=== PATIENT | male | born 1955 | race Caucasian/White ===

== ENCOUNTER 2018-06-14 20:00 | Inpatient (IN) | payer BC, SELFPAY ==
[2018-06-14 20:01] VITALS: BP 155/94; PULSE 71; RESP 18; TEMP 37.2; O2SAT 98; BMI 25.5
--- NOTE | 2018-06-14 20:23 | ED.DCSUM_ITS ---
- ER Visit Summary Date of Service: 06/14/18 Chief Complaint: abdominal pain History of Present Illness: The patient is a 63 M who presents for 3 days of abdominal pain. Pain is diffuse and achy. It is currently an 8 out of 10. Patient has associated nausea and vomiting. No diarrhea but patient is passing flatus. He has subjective fever secondary to sweats. No measured fever. No urinary symptoms. Pain started 3 days ago and improved after 24 hours. Patient then was very fatigued and slept from Thursday night until this morning. He has had decreased p.o. intake. He denies any medical history other than cholecystectomy. No tobacco or alcohol use. Physical Examination: Vital signs: afebrile, hemodynamically stable, no hypoxia on room air General: well nourished, well developed, in no distress Skin: warm, moist, no rash, no pallor HEENT: normocephalic and atraumatic; PERRL, EOMI, moist mucous membranes Cardiovascular: regular rate and rhythm without murmurs, no peripheral edema, 2 + pulses all distal extremities Respiratory: No increased work of breathing, lungs are clear to auscultation bilaterally, no rales, rhonchi or wheezing Abdominal: Abdomen is soft, diffusely tender with normoactive bowel sounds, no guarding or rebound, no masses MSK: Moves all extremities, no deformities, normal strength Neuro: Awake and alert, oriented ?4. No facial droop, sensation and motor function intact and symmetric Test Results: Abnormal Lab Results 06/14/18 06/14/18 06/14/18 20:46 20:46 20:46 WBC 13.1 H RBC 4.00 L Hgb 13.0 Hct 38.7 L MCV 96.8 H MCH 32.5 H MCHC 33.6 RDW 13.5 RDW Differential 47.5 H Plt Count 285 MPV 9.6 Immature Gran % (Auto) 0.100 Neut % (Auto) 77.2 H Lymph % (Auto) 11.3 L [place] % (Auto) 11.1 H Eos % (Auto) 0.2 Baso % (Auto) 0.1 Absolute Neuts (auto) 10.1 H Absolute Lymphs (auto) 1.48 Total Counted Not Reportable Sodium 138 Potassium 3.7 Chloride 102 Carbon Dioxide 25.0 Anion Gap 11 BUN 21 H Creatinine 1.20 Estim Creat Clear Calc 63.83 Est GFR (MDRD) Af Amer 79 Est GFR (MDRD) Non-Af 65 BUN/Creatinine Ratio 17.5 Glucose 123 H Lactic Acid 2.7 H Calcium 9.6 Total Bilirubin 1.60 H AST 39 H ALT 37 Alkaline Phosphatase 65 Troponin I < 0.015 Total Protein 8.2 Albumin 4.3 Globulin 3.9 Albumin/Globulin Ratio 1.1 Lipase 91 Urine Color Urine Clarity Urine pH Ur Specific [place] Urine Protein Urine Glucose (UA) Urine Ketones Urine Occult Blood Urine Nitrite Urine Bilirubin Urine Urobilinogen Ur Leukocyte Esterase Urine RBC Urine WBC Ur Squamous Epith Cells Urine Bacteria Urine Mucus 06/14/18 23:37 WBC RBC Hgb Hct MCV MCH MCHC RDW RDW Differential Plt Count MPV Immature Gran % (Auto) Neut % (Auto) Lymph % (Auto) [place] % (Auto) Eos % (Auto) Baso % (Auto) Absolute Neuts (auto) Absolute Lymphs (auto) Total Counted Sodium Potassium Chloride Carbon Dioxide Anion Gap BUN Creatinine Estim Creat Clear Calc Est GFR (MDRD) Af Amer Est GFR (MDRD) Non-Af BUN/Creatinine Ratio Glucose Lactic Acid Calcium Total Bilirubin AST ALT Alkaline Phosphatase Troponin I Total Protein Albumin Globulin Albumin/Globulin Ratio Lipase Urine Color Yellow Urine Clarity Clear Urine pH 7.0 Ur Specific [place] 1.010 Urine Protein 30 H Urine Glucose (UA) Normal Urine Ketones 15 H Urine Occult Blood 50 H Urine Nitrite Negative Urine Bilirubin Negative Urine Urobilinogen 4 H Ur Leukocyte Esterase 25 H Urine RBC 0 SEEN Urine WBC 0 SEEN Ur Squamous Epith Cells 0-5 SEEN Urine Bacteria 0 SEEN Urine Mucus 0 SEEN Clinical Impression(s) from Imaging Studies Abdomen/Pelvis CT 06/14/18 20:22 IMPRESSION: 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 Moderate hiatal hernia. Electronically Signed: Hector Delarosa MD at 22:09 EDT , Service support , Medications Given Discontinued Medications Hydromorphone HCl (Dilaudid Inj) 0.5 mg IV X1 ONE Stop: 06/14/18 22:31 Last Admin: 06/14/18 22:28 Dose: 0.5 mg Sodium Chloride () 1,000 mls @ 1,000 mls/hr IV .Q1H ONE Stop: 06/14/18 21:21 Last Admin: 06/14/18 20:52 Dose: 1,000 mls/hr Morphine Sulfate () 4 mg IV X1 ONE Stop: 06/14/18 20:23 Last Admin: 06/14/18 20:52 Dose: 4 mg Ondansetron HCl (Zofran) 4 mg IV X1 ONE Stop: 06/14/18 20:23 Last Admin: 06/14/18 20:52 Dose: 4 mg Ondansetron HCl (Zofran) 4 mg IV X1 ONE Stop: 06/14/18 21:51 Last Admin: 06/14/18 21:40 Dose: 4 mg Emergency Department Course and Treatment: Given the diffuse nature of patient' s pain and his age, EKG was performed showing a sinus rhythm without ischemia or ectopy. Troponin negative. CBC showed mild leukocytosis and no anemia. Leukocytosis may be secondary to the demarginalization from vomiting. BMP was unremarkable. Bilirubin mildly elevated at 1.6. No significant transaminitis. Lipase normal at 91. Lactate elevated at 2.7. Analysis negative for infection. Patient received IV hydration, morphine and Zofran for symptomatic relief. He was improved for a period of time but then began having nausea again and was given Phenergan for additional antiemetic and Dilaudid for additional pain. CT the abdomen and pelvis performed and showed no acute process to explain patient' s symptoms. Patient was reevaluated after receiving the 2 doses of pain and antiemetic medications as well as IV fluids. His symptoms were improved but he still did not feel well. He is afebrile, with no tachycardia or tachypnea, no hypoxia, and a mild leukocytosis that may be secondary to vomiting. He does have the elevated lactate, however he does not meet SIRS criteria and given that the patient has had very poor oral intake and has been vomiting several times, the elevated lactate may be secondary to an alternative process other than infection and more so due to dehydration. Because patient lives alone, is older, and has not had sufficient improvement after 2 doses of IV medications, patient will be admitted for intractable nausea and abdominal pain with concern for dehydration. Treatment Plan: [] Disposition: [] Impression: Vomiting illness, abdominal pain, dehydration This note was generated with [employer] software. It may contain incorrect words, spelling, and punctuation that were not noted in review of the chart prior to signing ED Disposition - Plan for ED Patient: Chief Complaint: Nausea/Vomiting Referrals: Chidi Jeff MD [Primary Care Provider] -
[2018-06-14] MEDS: 0.9% Normal Saline 1,000 ML 1000 ML IV (20:52)
[2018-06-14] MEDS: Ondansetron 4 MG/2 ML Vial IV ×2 (20:52→21:40)
[2018-06-14] MEDS: Morphine 4 MG/ML Syringe IV (20:52)
[2018-06-14 21:22] LABS: ALB/GLOB Ratio 1.1 RATIO (0.9-2.4); AST(SGOT) 39 U/L (15-37); Alanine Aminotransfer ALT/SGPT 37 U/L (16-61); Albumin, Serum 4.3 g/dL (3.2-5.0); Alkaline Phosphatase 65 U/L (45-117); Anion Gap 11 (5-15); BUN 21 mg/dL (7-18); BUN/Creat Ratio 17.5 RATIO (10-20); Calcium,Total 9.6 mg/dL (8.5-10.1); Chloride 102 mmol/L (98-107); EST Glomerular Filtration Rate 65 mL/min (>60); Est Glom Filt Rate - Afr Amer 79 mL/min (>60); Estimated Creatinine Clearance 63.83 ml/min; Globulin 3.9 g/dL (2.2-4.2); Glucose 123 mg/dL (74-106); Lipase 91 U/L (73-393); Potassium 3.7 mmol/L (3.5-5.1); Protein, Total 8.2 g/dL (6.4-8.2); Sodium Level 138 mmol/L (136-145)
[2018-06-14 21:41] LABS: Lactic Acid 2.7 mmol/L (0.4-2.0)
[2018-06-14] MEDS: HYDROmorphone 1 MG/ML Syringe 0.5 MG IV (22:28)
[2018-06-14 22:29] VITALS: BP 144/80; PULSE 79; RESP 17; O2SAT 97
--- NOTE | 2018-06-14 22:36 | ED.RN ---
LAB CALLED CRITICAL LAB ON THIS PATIENT OF LACTIC OF 2.7. DR BRANHAM NOTIFIED
[2018-06-14 23:46] LABS: Bacteria 0 SEEN /hpf (None Seen); Mucous, Urine 0 SEEN /hpf (<or=2+); Red Blood Cells-Urine 0 SEEN /hpf (0-5); White Blood Cells 0 SEEN /hpf (0-5)
[2018-06-14 23:47] LABS: Color, Urine Yellow (Yellow); Glucose, Dipstick Normal (Normal); Ketone-Dipstick 15 mg/dl (Negative); Leukocyte Esterase-Dipstick 25 /ul (Negative); Nitrite-Dipstick Negative (Negative); Occult Blood-Urine 50 /ul (Negative); Protein-Dipstick 30 mg/dl (Negative); Urine Bilirubin Dipstick Negative (Negative); Urine Clarity Clear (Clear); Urine Urobilinogen 4 mg/dl (Normal)
[2018-06-14 23:52] LABS: Absolute Lymphocyte Count 1.48 X10^3/ul (0.83-4.51); Absolute Neutrophil Count 10.1 X10^3/uL (2.0-7.7); Basophil# 0.01 X10^3/uL; Basophil% 0.1 % (0-1); Eosinophil# 0.02 X10^3/uL; Eosinophils% 0.2 % (0-5); Hematocrit 38.7 % (40-54); Lymphocyte # 1.48 X10^3/ul (4.0); Lymphocyte % 11.3 % (19-41); Mean Corp Hgb Conc 33.6 g/gl (32-36); Mean Corpuscular Hgb 32.5 pg (27.0-32.0); Mean Corpuscular Volume 96.8 fL (80-94); Mean Platelet Vol. 9.6 fl (6.2-12.0); Monocyte# 1.46 X10^3/uL; Monocyte% 11.1 % (0-10); Neutrophil # 10.12 X10^3/uL (2.7-7.7); Neutrophil % 77.2 % (47-70); Platelet Count 285 K/mm3 (150-450); RBC Distribution Width CV 13.5 % (11.6-14.6); RBC Distribution Width SD 47.5 fl (35.1-43.9); White Blood Count 13.1 K/mm3 (4.4-11.0)
[2018-06-14 23:59] LABS: POSITIVE COUNT NO; POSITIVE DIFFERENTIAL NO; POSITIVE MORPHOLOGY NO
[2018-06-15] VITALS (8 sets, daily range): BP systolic 146–159; BP diastolic 86–96; PULSE 56–76; RESP 14–18; TEMP 36.4–37.1; O2SAT 96–100; BMI 25.5; BMI 25.6
[2018-06-15] MEDS: 0.9% Normal Saline 1,000 ML 999 ML IV
[2018-06-15 00:07] LABS: Squamous Epithelial Cells - UA 0-5 SEEN /hpf (0-5)
--- NOTE | 2018-06-15 00:32 | PCM.HP.STD ---
Problem List (1) Gastritis Status: Acute (2) Elevated lactic acid level Status: Acute History of Present Illness Date of Admission: 06/15/18 Chief Complaint: Abdominal Pain, nausea and vomiting ?3 days. The patient is a 63 year old previously healthy male with a history of cholecystectomy who presents with 5 day history of abdominal pain, nausea and vomiting. He describes abdominal pain as dull and of severity 9 out of 10. His vomitus is green to yellow with one-time episode of blood. Patient presented to the emergency department because of persistence of his symptoms. Past Medical History Past Medical History (Chronic Problems): Chronic Problems Inguinal hernia (Chronic) Hiatal hernia (Chronic) Allergies No Known Allergies Allergy (Verified 11/20/15 15:24) Home Medications: Ambulatory Orders Medication Instructions Recorded NK [NK] 06/15/18 Surgical History: - - EGD in the past History of cholecystectomy Psychiatric History: No pertinent psych hx Lives: Alone, - Smoking Status: Former smoker - *Family History Paternal History Items: - - lymphoma Maternal History Items: - - AIDP Review of Systems Constitutional: Reports: Malaise Eyes: Denies: Blurred vision, Pain HEENT: Denies: Head Aches, Sinus Congestion, Sinus Drainage Cardiovascular: Denies: Chest Pain, Palpitations Respiratory: Denies: Cough, Shortness of breath at rest, Sputum production Gastrointestinal: Reports: Abdominal Pain. Denies: Diarrhea - He has been passing flatus. Genitourinary: Denies: Dysuria Musculoskeletal: Reports: Arm Pain Skin: Denies: Rash, Wounds Neurological: Denies: Numbness, Tingling, Focal weakness Psychiatric: Denies: Anxiety, Depression, Homicidal Ideations, Suicidal Ideations Hematologic/ Lymphatic: Denies: Easy Bruising, Easy Bleeding VTE Information - Inpt Only VTE Present on Admission: No VTE Mechan Device Prophylaxis: None VTE Pharm Prophylaxis ordered?: No Patient Problems: Active and Suspected Problems Gastritis (Acute) Elevated lactic acid level (Acute) - Physical Exam General: Alert, Oriented x3, Cooperative HEENT: Atraumatic, PERRLA, EOMI, Normocephalic Neck: Supple, No JVD, Negative Carotid Bruits Lungs: Clear to auscultation, Normal air movement Cardiovascular: Regular rate, No murmurs Abdomen: Bowel Sounds Present, Soft, Non Tender Extremities: No edema, Capillary Refill Less than 3 Seconds Skin: No rashes, No breakdown Musculoskeletal: No Tenderness to Palpation of Joints or Extremities Neurological: Cranial nerves II-XII grossly intact Psych/Mental Status: Normal Affect, Appropriate Vital Signs Temp Pulse Resp BP Pulse Ox 98.9 F 79 17 144/80 H 97 06/14/18 20:01 06/14/18 22:29 06/14/18 22:29 06/14/18 22:29 06/14/18 22:29 Assessment/Plan All Active Problems Gastritis (Acute) Elevated lactic acid level (Acute) Abdominal pain (Acute) The patient is a 63 year old previously healthy male with a history of cholecystectomy who presents with 5 day history of abdominal pain, nausea and vomiting. He describes abdominal pain as dull and of severity 9 out of 10 Likely viral gastritis WBC showed a neutrophilic leukocytosis and; low lymphocytes Received normal saline bolus at emergency department Continue maintenance normal saline IV fluid infusion. Supportive treatment with morphine as needed for pain; Zofran for nausea and vomiting. N.p.o. for now. Labs from emergency department was reviewed. CBC and BMP in a.m. Patient reports that his presenting symptoms okay about every 2 years. His symptoms symptoms could also be due to his left inguinal hernia and follow-up evaluation with general surgery is recommended after this acute symptoms resolves. For the CT scan of his abdomen showed dilated intra-and extrahepatic ducts. Patient had a cholecystectomy. But his symptoms could also be due to choledocholithiasis. Ultrasound of liver to further evaluate biliary tree ordered. Lipase is unremarkable. Urinalysis showed increase leukocyte esterase with no bacteria. Patient denies urinary symptoms. Elevated lactic acid Likely due to dehydration IV hydration as above. Repeat lactic acid per protocol. Hyperbilirubinemia Ultrasound of liver ordered. 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 Outpatient follow up Moderate hiatal hernia. Outpatient follow up. DVT prophylaxis with subcutaneous heparin. Code Visit Inpatient E&M: 35601 Init Hosp L3
--- NOTE | 2018-06-15 00:40 | ED.RN ---
rt ac iv discontinued. iv patent upon removal.
[2018-06-15 00:51] LABS: Reflex Lactate? Y
[2018-06-15] MEDS: 0.9% Normal Saline 1,000 ML 100 ML IV (01:45)
[2018-06-15 02:12] LABS: Lactic Acid 1.6 mmol/L (0.4-2.0)
[2018-06-15] MEDS: Morphine 2 MG/ML Syringe IV ×4 (04:44→19:55)
[2018-06-15] MEDS: 0.9% NaCl Peripheral Flush Adult/Peds IV ×4 (04:44→19:56)
[2018-06-15] MEDS: Ondansetron 4 MG/2 ML Vial IV ×3 (04:44→17:27)
[2018-06-15] MEDS: Heparin Injection (Vial) 5,000 UNIT/ML VIAL 5000 UNIT SC ×3 (05:49→23:43)
[2018-06-15 06:52] LABS: Absolute Lymphocyte Count 1.73 X10^3/ul (0.83-4.51); Eosinophil# 0.03 X10^3/uL; Eosinophils% 0.2 % (0-5); Hemoglobin 14.6 g/dl (13.0-16.5); Lymphocyte # 1.73 X10^3/ul (4.0); Lymphocyte % 12.3 % (19-41); Mean Corpuscular Hgb 32.7 pg (27.0-32.0); Mean Corpuscular Volume 96.4 fL (80-94); Mean Platelet Vol. 9.5 fl (6.2-12.0); Monocyte# 1.33 X10^3/uL; Monocyte% 9.4 % (0-10); Neutrophil # 10.97 X10^3/uL (2.7-7.7); Platelet Count 271 K/mm3 (150-450); RBC Distribution Width CV 13.6 % (11.6-14.6); RBC Distribution Width SD 47.6 fl (35.1-43.9); Red Blood Count 4.46 M/mm3 (4.6-6.2); White Blood Count 14.1 K/mm3 (4.4-11.0)
[2018-06-15 07:02] LABS: POSITIVE COUNT NO; POSITIVE DIFFERENTIAL NO; POSITIVE MORPHOLOGY NO
[2018-06-15 07:15] LABS: Anion Gap 13 (5-15); BUN 20 mg/dL (7-18); BUN/Creat Ratio 20.7 RATIO (10-20); Calcium,Total 8.5 mg/dL (8.5-10.1); Chloride 107 mmol/L (98-107); Creatinine, Serum 0.96 mg/dL (0.70-1.30); EST Glomerular Filtration Rate 84 mL/min (>60); Est Glom Filt Rate - Afr Amer 101 mL/min (>60); Estimated Creatinine Clearance 79.78 ml/min; Glucose 124 mg/dL (74-106); Potassium 3.8 mmol/L (3.5-5.1); Sodium Level 142 mmol/L (136-145)
--- NOTE | 2018-06-15 09:53 | PCM.HOSP.N ---
Hospitalist Note Seen and examined. 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 Patient admitted with nausea, vomiting since Thursday which got worse on Thursday. Currently denies any nausea or vomiting. Has not had bowel movement since Thursday. No diarrhea or GI bleed. Started on clear fluid liquid. On exam Abdomen: Soft, nontender nondistended bowel sounds sluggish. Lungs: Clear, air entry bilaterally equal. Heart: S1-S2 regular, no added sound. 1. Acute gastroenteritis: Continue conservative management with IV fluid. Monitor intake and output. Started on clear liquid diet.
[2018-06-15] MEDS: Dicyclomine 10 MG Capsule 20 MG PO (18:24)
[2018-06-15 18:57] LABS: Absolute Lymphocyte Count 2.07 X10^3/ul (0.83-4.51); Absolute Neutrophil Count 8.3 X10^3/uL (2.0-7.7); Basophil# 0.01 X10^3/uL; Basophil% 0.1 % (0-1); Eosinophil# 0.03 X10^3/uL; Eosinophils% 0.3 % (0-5); Hematocrit 43.5 % (40-54); Hemoglobin 14.8 g/dl (13.0-16.5); Lymphocyte # 2.07 X10^3/ul (4.0); Lymphocyte % 18.2 % (19-41); Mean Corpuscular Hgb 32.9 pg (27.0-32.0); Mean Corpuscular Volume 96.7 fL (80-94); Mean Platelet Vol. 9.6 fl (6.2-12.0); Monocyte% 8.8 % (0-10); Neutrophil # 8.28 X10^3/uL (2.7-7.7); Neutrophil % 72.5 % (47-70); POSITIVE COUNT NO; POSITIVE DIFFERENTIAL NO; POSITIVE MORPHOLOGY NO; Platelet Count 277 K/mm3 (150-450); RBC Distribution Width CV 13.6 % (11.6-14.6); RBC Distribution Width SD 48.1 fl (35.1-43.9); White Blood Count 11.4 K/mm3 (4.4-11.0)
[2018-06-15 19:05] LABS: Anion Gap 10 (5-15); BUN 16 mg/dL (7-18); BUN/Creat Ratio 14.8 RATIO (10-20); Calcium,Total 8.7 mg/dL (8.5-10.1); Chloride 105 mmol/L (98-107); Creatinine, Serum 1.08 mg/dL (0.70-1.30); EST Glomerular Filtration Rate 74 mL/min (>60); Est Glom Filt Rate - Afr Amer 89 mL/min (>60); Estimated Creatinine Clearance 70.92 ml/min; Glucose 115 mg/dL (74-106); Potassium 3.5 mmol/L (3.5-5.1); Sodium Level 138 mmol/L (136-145)
[2018-06-15] MEDS: Zolpidem Tartrate 5 MG Tablet PO (23:43)
[2018-06-16 02:00] VITALS: BP 141/93; PULSE 71; RESP 18; TEMP 37.3; O2SAT 98
[2018-06-16 05:29] LABS: Absolute Lymphocyte Count 1.59 X10^3/ul (0.83-4.51); Absolute Neutrophil Count 9.3 X10^3/uL (2.0-7.7); Basophil# 0.01 X10^3/uL; Basophil% 0.1 % (0-1); Eosinophil# 0.08 X10^3/uL; Eosinophils% 0.7 % (0-5); Hematocrit 44.5 % (40-54); Hemoglobin 15.1 g/dl (13.0-16.5); Lymphocyte # 1.59 X10^3/ul (4.0); Mean Corp Hgb Conc 33.9 g/gl (32-36); Mean Corpuscular Hgb 33.1 pg (27.0-32.0); Mean Corpuscular Volume 97.6 fL (80-94); Mean Platelet Vol. 9.5 fl (6.2-12.0); Monocyte# 1.21 X10^3/uL; Monocyte% 9.9 % (0-10); Neutrophil # 9.34 X10^3/uL (2.7-7.7); Neutrophil % 76.1 % (47-70); POSITIVE COUNT NO; POSITIVE DIFFERENTIAL NO; POSITIVE MORPHOLOGY NO; Platelet Count 267 K/mm3 (150-450); RBC Distribution Width CV 13.4 % (11.6-14.6); RBC Distribution Width SD 47.2 fl (35.1-43.9); Red Blood Count 4.56 M/mm3 (4.6-6.2); White Blood Count 12.3 K/mm3 (4.4-11.0)
[2018-06-16] MEDS: Heparin Injection (Vial) 5,000 UNIT/ML VIAL 5000 UNIT SC ×3 (06:45→21:11)
[2018-06-16 08:58] VITALS: BP 164/102; PULSE 61; RESP 18; TEMP 36.7; O2SAT 97
[2018-06-16] MEDS: Ondansetron 4 MG/2 ML Vial IV (11:21)
[2018-06-16] MEDS: 0.9% NaCl Peripheral Flush Adult/Peds IV (11:22)
[2018-06-16] MEDS: Pantoprazole Sodium 40 MG Tablet PO (12:00)
--- NOTE | 2018-06-16 13:01 | PCM.PN.HOSP ---
Patient Problems: Active and Suspected Problems Gastritis (Acute) Elevated lactic acid level (Acute) Subjective: Patient has abdominal discomfort. Feels mild bloating sensation and dyspeptic symptoms. Vitals/I&O's: Vital Signs Temp Pulse Resp BP Pulse Ox 98.1 F 61 18 164/102 H 97 06/16/18 08:58 06/16/18 08:58 06/16/18 08:58 06/16/18 08:58 06/16/18 08:58 Oxygen Delivery Method Room Air Weight: 173 lb 4.533 oz Body Mass Index (BMI) 25.5 Intake and Output for Last 24 Hours 06/14/18 06/15/18 06/16/18 23:59 23:59 23:59 Intake Total 1842 / 1842 690 / 690 Output Total 200 / 200 Balance 1642 / 1642 690 / 690 General: Alert, Oriented x3, Cooperative HEENT: Atraumatic, PERRLA, EOMI, Normocephalic Neck: Supple, No JVD, Negative Carotid Bruits Lungs: Clear to auscultation, Normal air movement Cardiovascular: Regular rate, Regular Rhythm, Normal S1, Normal S2, No murmurs Abdomen: Bowel Sounds Present, Soft, Tender - Deep tenderness present over left lower quadrant Extremities: Capillary Refill Less than 3 Seconds, Edema Skin: No rashes, No breakdown Musculoskeletal: No Tenderness to Palpation of Joints or Extremities Neurological: Cranial nerves II-XII grossly intact Psych/Mental Status: Normal Affect, Appropriate Laboratory Results 06/15/18 18:14: WBC 11.4 H, RBC 4.50 L, Hgb 14.8, Hct 43.5, MCV 96.7 H, MCH 32.9 H, MCHC 34.0, RDW 13.6, RDW Differential 48.1 H, Plt Count 277, MPV 9.6, Immature Gran % (Auto) 0.100, Neut % (Auto) 72.5 H, Lymph % (Auto) 18.2 L, [place] % (Auto) 8.8, Eos % (Auto) 0.3, Baso % (Auto) 0.1, Absolute Neuts (auto) 8.3 H, Absolute Lymphs (auto) 2.07, Total Counted Not Reportable 06/15/18 18:14: Sodium 138, Potassium 3.5, Chloride 105, Carbon Dioxide 23.0, Anion Gap 10, BUN 16, Creatinine 1.08, Estim Creat Clear Calc 70.92, Est GFR (MDRD) Af Amer 89, Est GFR (MDRD) Non-Af 74, BUN/Creatinine Ratio 14.8, Glucose 115 H, Calcium 8.7 06/16/18 05:05: WBC 12.3 H, RBC 4.56 L, Hgb 15.1, Hct 44.5, MCV 97.6 H, MCH 33.1 H, MCHC 33.9, RDW 13.4, RDW Differential 47.2 H, Plt Count 267, MPV 9.5, Immature Gran % (Auto) 0.200, Neut % (Auto) 76.1 H, Lymph % (Auto) 13.0 L, [place] % (Auto) 9.9, Eos % (Auto) 0.7, Baso % (Auto) 0.1, Absolute Neuts (auto) 9.3 H, Absolute Lymphs (auto) 1.59, Total Counted Not Reportable Current Medications Bisacodyl (Dulcolax) 5 mg PO DAILY PRN PRN PRN Reason: Constipation Dicyclomine HCl (Bentyl) 20 mg PO Q4H PRN PRN Reason: abdominal discomfort Heparin Sodium (Porcine) (Heparin Na) 5,000 unit SC Q8 [facility] Last Admin: 06/16/18 06:45 Dose: 5,000 unit Ciprofloxacin 400 mg/ N/A 200 mls @ 200 mls/hr IV Q12 [facility] Metronidazole 500 mg/ N/A 100 mls @ 100 mls/hr IV Q8 [facility] Last Admin: 06/16/18 11:57 Dose: 100 mls/hr Lactobacillus Acidophilus (Acidophilus) 1 tablet PO TID [facility] Magnesium Hydroxide (Milk Of Magnesia) 30 ml PO DAILY PRN PRN PRN Reason: Constipation Morphine Sulfate () 1 - 2 mg IV Q4H PRN PRN PRN Reason: PAIN Last Admin: 06/15/18 19:55 Dose: 2 mg Nutritional Formula (Lactose Free) (Ensure Clear) 120 ml PO TIDCM [facility] Ondansetron HCl (Zofran) 4 mg IV Q6H PRN PRN PRN Reason: NAUSEA/VOMITING Last Admin: 06/16/18 11:21 Dose: 4 mg Pantoprazole Sodium (Protonix) 40 mg PO DAILY [facility] Last Admin: 06/16/18 12:00 Dose: 40 mg Sodium Chloride () 5 - 30 ml IV UD PRN PRN Reason: SALINE FLUSH Last Admin: 06/16/18 11:22 Dose: 10 ml Medical Necessity - Tobacco Use Smoking Status: Former smoker Assessment/Plan All Active Problems Gastritis (Acute) Elevated lactic acid level (Acute) Abdominal pain (Acute) This 63-year-old gentleman with history of prior cholecystectomy admitted with 5 days history of abdominal pain, nausea, vomiting. Initially had generalized abdominal pain but now it is localized to left lower quadrant. CT abdomen shows sigmoid diverticulosis with no features of diverticulitis 1. Left lower quadrant abdominal pain most probably secondary to sigmoid diverticulitis: The patient has mild leukocytosis, 14,000 enalapril thousand, elevated lactic acid and left lower quadrant abdominal pain with tenderness suggestive of mild sigmoid diverticulitis. Started on IV Cipro and Flagyl. On probiotic. Clear liquid diet. Patient moved his bowels. No hematemesis/hematochezia/melena. 2. Moderate hiatus hernia with GERD: On Protonix. Patient had EGD many years ago. Will need outpatient EGD and colonoscopy after he gets better with the current episode of abdominal pain. 3. 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 It is unchanged from prior imaging since August 2014. No further workup needed. 4. Infrarenal abdominal aorta aneurysm: Outpatient follow-up DVT prophylaxis: On subcutaneous heparin. Laboratory Results 06/15/18 18:14: WBC 11.4 H, RBC 4.50 L, Hgb 14.8, Hct 43.5, MCV 96.7 H, MCH 32.9 H, MCHC 34.0, RDW 13.6, RDW Differential 48.1 H, Plt Count 277, MPV 9.6, Immature Gran % (Auto) 0.100, Neut % (Auto) 72.5 H, Lymph % (Auto) 18.2 L, [place] % (Auto) 8.8, Eos % (Auto) 0.3, Baso % (Auto) 0.1, Absolute Neuts (auto) 8.3 H, Absolute Lymphs (auto) 2.07, Total Counted Not Reportable 06/15/18 18:14: Sodium 138, Potassium 3.5, Chloride 105, Carbon Dioxide 23.0, Anion Gap 10, BUN 16, Creatinine 1.08, Estim Creat Clear Calc 70.92, Est GFR (MDRD) Af Amer 89, Est GFR (MDRD) Non-Af 74, BUN/Creatinine Ratio 14.8, Glucose 115 H, Calcium 8.7 06/16/18 05:05: WBC 12.3 H, RBC 4.56 L, Hgb 15.1, Hct 44.5, MCV 97.6 H, MCH 33.1 H, MCHC 33.9, RDW 13.4, RDW Differential 47.2 H, Plt Count 267, MPV 9.5, Immature Gran % (Auto) 0.200, Neut % (Auto) 76.1 H, Lymph % (Auto) 13.0 L, [place] % (Auto) 9.9, Eos % (Auto) 0.7, Baso % (Auto) 0.1, Absolute Neuts (auto) 9.3 H, Absolute Lymphs (auto) 1.59, Total Counted Not Reportable Clinical Impression(s) from Imaging Studies Abdomen/Pelvis CT 06/14/18 20:22 IMPRESSION: 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 Moderate hiatal hernia. Liver Ultrasound 06/15/18 01:12 IMPRESSION: 11 mm common bile duct. Unchanged compared to prior imaging as far back as CT abdomen and pelvis of 09/01/2014, chronic adaptive sequela of cholecystectomy. Active Medications Bisacodyl (Dulcolax) 5 mg PO DAILY PRN PRN PRN Reason: Constipation Dicyclomine HCl (Bentyl) 20 mg PO Q4H PRN PRN Reason: abdominal discomfort Heparin Sodium (Porcine) (Heparin Na) 5,000 unit SC Q8 [facility] Last Admin: 06/16/18 13:08 Dose: 5,000 unit Ciprofloxacin 400 mg/ N/A 200 mls @ 200 mls/hr IV Q12 [facility] Last Admin: 06/16/18 13:06 Dose: 200 mls/hr Metronidazole 500 mg/ N/A 100 mls @ 100 mls/hr IV Q8 [facility] Last Admin: 06/16/18 11:57 Dose: 100 mls/hr Lactobacillus Acidophilus (Acidophilus) 1 tablet PO TID [facility] Last Admin: 06/16/18 13:08 Dose: 1 tablet Magnesium Hydroxide (Milk Of Magnesia) 30 ml PO DAILY PRN PRN PRN Reason: Constipation Morphine Sulfate () 1 - 2 mg IV Q4H PRN PRN PRN Reason: PAIN Last Admin: 06/15/18 19:55 Dose: 2 mg Nutritional Formula (Lactose Free) (Ensure Clear) 120 ml PO TIDCM [facility] Ondansetron HCl (Zofran) 4 mg IV Q6H PRN PRN PRN Reason: NAUSEA/VOMITING Last Admin: 06/16/18 11:21 Dose: 4 mg Pantoprazole Sodium (Protonix) 40 mg PO DAILY [facility] Last Admin: 06/16/18 12:00 Dose: 40 mg Sodium Chloride () 5 - 30 ml IV UD PRN PRN Reason: SALINE FLUSH Last Admin: 06/16/18 11:22 Dose: 10 ml Code Visit Inpatient E&M: 85080 Subs Hosp L3
[2018-06-16 15:01] VITALS: BP 157/108; PULSE 75; RESP 18; TEMP 37.1; O2SAT 95
[2018-06-16] MEDS: Dicyclomine 10 MG Capsule 20 MG PO (18:13)
[2018-06-16] MEDS: Morphine 2 MG/ML Syringe IV (18:18)
[2018-06-16 21:02] VITALS: BP 144/93; PULSE 61; RESP 16; TEMP 36.6; O2SAT 100
[2018-06-16] MEDS: Zolpidem Tartrate 5 MG Tablet PO (23:00)
[2018-06-17] MEDS: Heparin Injection (Vial) 5,000 UNIT/ML VIAL 5000 UNIT SC ×3 (07:07→22:01)
[2018-06-17] MEDS: Ondansetron 4 MG/2 ML Vial IV (08:50)
[2018-06-17 09:11] VITALS: BP 149/88; PULSE 62; RESP 16; TEMP 36.9; O2SAT 96
[2018-06-17] MEDS: Pantoprazole Sodium 40 MG Tablet PO (09:23)
--- NOTE | 2018-06-17 10:57 | CASEMGMT ---
Addendum entered by Selene Jameson 06/17/18 17:06: WILMER Jauregui updated this worker that pt informed him that he called his employer who called insurance company and pt's birthdate is wrong on pt's insurance card and his company will change this. MAHENDRA updated Shelby in [facility] of this. Original Note: Social Work Note SW placed a call to [facility] and spoke with Shelby. Per Shelby she has attempted to see pt twice yesterday and today but pt has been sleeping both times. SW in to speak with pt regarding self-pay. Pt currently in bathroom. SW provided pt with list of self-pay resources including [employer], [employer], [facility] Osbornman, [employer] application and Medicaid Application. MAHENDRA placed self-pay resources on pt's table. Selene Jameson TEXTILE BAG SEWER, STATISTICIAN APPLIED
[2018-06-17] MEDS: Morphine 2 MG/ML Syringe IV (11:11)
[2018-06-17] MEDS: 0.9% NaCl Peripheral Flush Adult/Peds IV (11:12)
[2018-06-17 13:11] LABS: Absolute Lymphocyte Count 2.18 X10^3/ul (0.83-4.51); Absolute Neutrophil Count 6.6 X10^3/uL (2.0-7.7); Eosinophil# 0.05 X10^3/uL; Eosinophils% 0.5 % (0-5); Hematocrit 45.4 % (40-54); Hemoglobin 15.5 g/dl (13.0-16.5); Lymphocyte # 2.18 X10^3/ul (4.0); Lymphocyte % 22.2 % (19-41); Mean Corp Hgb Conc 34.1 g/gl (32-36); Mean Corpuscular Volume 96.8 fL (80-94); Mean Platelet Vol. 9.8 fl (6.2-12.0); Monocyte# 0.97 X10^3/uL; Monocyte% 9.9 % (0-10); Neutrophil # 6.61 X10^3/uL (2.7-7.7); Neutrophil % 67.2 % (47-70); Platelet Count 281 K/mm3 (150-450); RBC Distribution Width CV 13.1 % (11.6-14.6); RBC Distribution Width SD 46.1 fl (35.1-43.9); Red Blood Count 4.69 M/mm3 (4.6-6.2); White Blood Count 9.8 K/mm3 (4.4-11.0)
[2018-06-17 13:12] LABS: POSITIVE COUNT NO; POSITIVE DIFFERENTIAL NO; POSITIVE MORPHOLOGY NO
[2018-06-17 13:57] LABS: Anion Gap 11 (5-15); BUN 19 mg/dL (7-18); BUN/Creat Ratio 16.8 RATIO (10-20); Calcium,Total 9.1 mg/dL (8.5-10.1); Chloride 101 mmol/L (98-107); Creatinine, Serum 1.13 mg/dL (0.70-1.30); EST Glomerular Filtration Rate 70 mL/min (>60); Est Glom Filt Rate - Afr Amer 85 mL/min (>60); Estimated Creatinine Clearance 67.78 ml/min; Glucose 85 mg/dL (74-106); Potassium 3.4 mmol/L (3.5-5.1); Sodium Level 139 mmol/L (136-145)
[2018-06-17 14:18] VITALS: BP 151/93; PULSE 74; RESP 16; TEMP 36.7; O2SAT 96
--- NOTE | 2018-06-17 15:56 | PCM.PN.HOSP ---
Patient Problems: Active and Suspected Problems Gastritis (Acute) Elevated lactic acid level (Acute) Subjective: Patient is to complain of abdominal pain in the morning today. He did not had abdominal pain last night and he slept well. Abdominal pain is started when he had wheat cookie. He also complained of cold sweat. Patient does not have tachycardia, fever or tachypnea. On IV antibiotics for suspected sigmoid diverticulitis. Vitals/I&O's: Vital Signs Temp Pulse Resp BP Pulse Ox 98.0 F 74 16 151/93 H 96 06/17/18 14:18 06/17/18 14:18 06/17/18 14:18 06/17/18 14:18 06/17/18 14:18 Oxygen Delivery Method Room Air General: Alert, Oriented x3, Cooperative HEENT: Atraumatic, PERRLA, EOMI, Normocephalic Neck: Supple, No JVD, Negative Carotid Bruits Lungs: Clear to auscultation, Normal air movement, No rhonchi, No wheeze Cardiovascular: Regular rate, Regular Rhythm, Normal S1, Normal S2, No murmurs Abdomen: Bowel Sounds Present, Soft, Non-Distended, Tender - Predominantly on left lower quadrant Extremities: No edema, Capillary Refill Less than 3 Seconds Skin: No rashes, No breakdown Musculoskeletal: No Tenderness to Palpation of Joints or Extremities, Arthritic Changes Neurological: Cranial nerves II-XII grossly intact Psych/Mental Status: Normal Affect, Appropriate Laboratory Results 06/17/18 12:20: WBC 9.8, RBC 4.69, Hgb 15.5, Hct 45.4, MCV 96.8 H, MCH 33.0 H, MCHC 34.1, RDW 13.1, RDW Differential 46.1 H, Plt Count 281, MPV 9.8, Immature Gran % (Auto) 0.200, Neut % (Auto) 67.2, Lymph % (Auto) 22.2, [place] % (Auto) 9.9, Eos % (Auto) 0.5, Baso % (Auto) 0.0, Absolute Neuts (auto) 6.6, Absolute Lymphs (auto) 2.18, Total Counted Not Reportable 06/17/18 12:20: Sodium 139, Potassium 3.4 L, Chloride 101, Carbon Dioxide 27.0, Anion Gap 11, BUN 19 H, Creatinine 1.13, Estim Creat Clear Calc 67.78, Est GFR (MDRD) Af Amer 85, Est GFR (MDRD) Non-Af 70, BUN/Creatinine Ratio 16.8, Glucose 85, Calcium 9.1 Current Medications Bisacodyl (Dulcolax) 5 mg PO DAILY PRN PRN PRN Reason: Constipation Dicyclomine HCl (Bentyl) 20 mg PO Q4H PRN PRN Reason: abdominal discomfort Last Admin: 06/16/18 18:13 Dose: 20 mg Heparin Sodium (Porcine) (Heparin Na) 5,000 unit SC Q8 [facility] Last Admin: 06/17/18 14:20 Dose: 5,000 unit Ciprofloxacin 400 mg/ N/A 200 mls @ 200 mls/hr IV Q12 [facility] Last Admin: 06/17/18 09:26 Dose: 200 mls/hr Metronidazole 500 mg/ N/A 100 mls @ 100 mls/hr IV Q8 [facility] Last Admin: 06/17/18 14:23 Dose: 100 mls/hr Lactobacillus Acidophilus (Acidophilus) 1 tablet PO TID [facility] Last Admin: 06/17/18 14:21 Dose: Not Given Magnesium Hydroxide (Milk Of Magnesia) 30 ml PO DAILY PRN PRN PRN Reason: Constipation Morphine Sulfate () 1 - 2 mg IV Q4H PRN PRN PRN Reason: PAIN Last Admin: 06/17/18 11:11 Dose: 2 mg Nutritional Formula (Lactose Free) (Ensure Clear) 120 ml PO TIDCM [facility] Last Admin: 06/17/18 15:47 Dose: Not Given Ondansetron HCl (Zofran) 4 mg IV Q6H PRN PRN PRN Reason: NAUSEA/VOMITING Last Admin: 06/17/18 08:50 Dose: 4 mg Pantoprazole Sodium (Protonix) 40 mg PO DAILY [facility] Last Admin: 06/17/18 09:23 Dose: 40 mg Potassium Chloride (K-Dur) 40 meq PO X1 ONE Stop: 06/17/18 15:56 Sodium Chloride () 5 - 30 ml IV UD PRN PRN Reason: SALINE FLUSH Last Admin: 06/17/18 11:12 Dose: 10 ml Zolpidem Tartrate (Ambien (Generic)) 5 mg PO QHS PRN PRN PRN Reason: SLEEP Last Admin: 06/16/18 23:00 Dose: 5 mg Medical Necessity - Tobacco Use Smoking Status: Former smoker Assessment/Plan All Active Problems Gastritis (Acute) Elevated lactic acid level (Acute) Abdominal pain (Acute) This 63-year-old gentleman with history of prior cholecystectomy admitted with 5 days history of abdominal pain, nausea, vomiting. Initially had generalized abdominal pain but now it is localized to left lower quadrant. CT abdomen shows sigmoid diverticulosis with no features of diverticulitis 1. Left lower quadrant abdominal pain most probably secondary to sigmoid diverticulitis: The patient has mild leukocytosis, 14,000 enalapril thousand, elevated lactic acid and left lower quadrant abdominal pain with tenderness suggestive of mild sigmoid diverticulitis. Started on IV Cipro and Flagyl. On probiotic. Clear liquid diet. Leukocytosis has resolved. Patient moved his bowels. No hematemesis/hematochezia/melena. Etiology of today abdominal pain, unclear with no good explanation: Seems sigmoid diverticulitis it is getting better with resolution of leukocytosis. Patient requested surgical opinion. Dr. Regalado consulted and informed. 2. Moderate hiatus hernia with GERD: On Protonix. Patient had EGD many years ago. Will need outpatient EGD and colonoscopy after he gets better with the current episode of abdominal pain. 3. 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 It is unchanged from prior imaging since August 2014. No further workup needed. 4. Infrarenal abdominal aorta aneurysm: Outpatient follow-up DVT prophylaxis: On subcutaneous heparin. Laboratory Results 06/17/18 12:20: WBC 9.8, RBC 4.69, Hgb 15.5, Hct 45.4, MCV 96.8 H, MCH 33.0 H, MCHC 34.1, RDW 13.1, RDW Differential 46.1 H, Plt Count 281, MPV 9.8, Immature Gran % (Auto) 0.200, Neut % (Auto) 67.2, Lymph % (Auto) 22.2, [place] % (Auto) 9.9, Eos % (Auto) 0.5, Baso % (Auto) 0.0, Absolute Neuts (auto) 6.6, Absolute Lymphs (auto) 2.18, Total Counted Not Reportable 06/17/18 12:20: Sodium 139, Potassium 3.4 L, Chloride 101, Carbon Dioxide 27.0, Anion Gap 11, BUN 19 H, Creatinine 1.13, Estim Creat Clear Calc 67.78, Est GFR (MDRD) Af Amer 85, Est GFR (MDRD) Non-Af 70, BUN/Creatinine Ratio 16.8, Glucose 85, Calcium 9.1 Clinical Impression(s) from Imaging Studies Abdomen/Pelvis CT 06/14/18 20:22 IMPRESSION: Progressive ectasia of the infrarenal abdominal aorta. Moderate hiatal hernia. Liver Ultrasound 06/15/18 01:12 IMPRESSION: 11 mm common bile duct. Unchanged compared to prior imaging as far back as CT abdomen and pelvis of 09/01/2014, chronic adaptive sequela of cholecystectomy. Active Medications Bisacodyl (Dulcolax) 5 mg PO DAILY PRN PRN PRN Reason: Constipation Dicyclomine HCl (Bentyl) 20 mg PO Q4H PRN PRN Reason: abdominal discomfort Heparin Sodium (Porcine) (Heparin Na) 5,000 unit SC Q8 [facility] Last Admin: 06/16/18 13:08 Dose: 5,000 unit Ciprofloxacin 400 mg/ N/A 200 mls @ 200 mls/hr IV Q12 [facility] Last Admin: 06/16/18 13:06 Dose: 200 mls/hr Metronidazole 500 mg/ N/A 100 mls @ 100 mls/hr IV Q8 [facility] Last Admin: 06/16/18 11:57 Dose: 100 mls/hr Lactobacillus Acidophilus (Acidophilus) 1 tablet PO TID [facility] Last Admin: 06/16/18 13:08 Dose: 1 tablet Magnesium Hydroxide (Milk Of Magnesia) 30 ml PO DAILY PRN PRN PRN Reason: Constipation Morphine Sulfate () 1 - 2 mg IV Q4H PRN PRN PRN Reason: PAIN Last Admin: 06/15/18 19:55 Dose: 2 mg Nutritional Formula (Lactose Free) (Ensure Clear) 120 ml PO TIDCM [facility] Ondansetron HCl (Zofran) 4 mg IV Q6H PRN PRN PRN Reason: NAUSEA/VOMITING Last Admin: 06/16/18 11:21 Dose: 4 mg Pantoprazole Sodium (Protonix) 40 mg PO DAILY [facility] Last Admin: 06/16/18 12:00 Dose: 40 mg Sodium Chloride () 5 - 30 ml IV UD PRN PRN Reason: SALINE FLUSH Last Admin: 06/16/18 11:22 Dose: 10 ml Code Visit Inpatient E&M: 05966 Subs Hosp L2
--- NOTE | 2018-06-17 16:33 | PCM.CONS.GEN ---
Problem List (1) Gastritis Status: Acute Qualifiers: Gastritis type: unspecified gastritis Chronicity: acute Gastritis bleeding: presence of bleeding unspecified Qualified Code(s): K29.00 - Acute gastritis without bleeding (2) Abdominal pain Status: Acute Qualifiers: Abdominal location: lower abdomen, unspecified Qualified Code(s): R10.30 - Lower abdominal pain, unspecified Reason for Consult Date of Consultation: 06/17/18 History of Present Illness: The patient is a 63 year old M presented to the hospital with a 3 day history of nausea and vomiting and some lower abdominal discomfort. His symptoms originally improved while he was in the hospital but every time he ate he started to have sweats discomfort in the epigastric area. He was having some persistent left lower quadrant abdominal pain as well and he has also had a leukocytosis which prompted the treatment of IV antibiotics. CAT scan of the abdomen was remarkable for having a moderate sized hiatal hernia diverticulosis without mention of diverticulitis even though he was having symptoms of pain in the left lower quadrant. When I see him right now he says he is not complaining of any discomfort and actually feels quite good but he is a little bit afraid to try to eat anything for fear of having the sweats and discomfort come back. Past Medical History Past Medical History (Chronic Problems): Chronic Problems Inguinal hernia (Chronic) Hiatal hernia (Chronic) Allergies No Known Allergies Allergy (Verified 11/20/15 15:24) Home Medications: Ambulatory Orders Medication Instructions Recorded NK [NK] 06/15/18 Surgical History: - - EGD in the past History of cholecystectomy Psychiatric History: No pertinent psych hx Lives: Alone, - Smoking Status: Former smoker - *Family History Paternal History Items: - - lymphoma Maternal History Items: - - AIDP Review of Systems Constitutional: Denies: Chills, Fever Gastrointestinal: Reports: Abdominal Pain, Nausea, Vomiting Genitourinary: Denies: Dysuria, Frequency, Hematuria, Urgency Musculoskeletal: Denies: Joint Pain Patient Problems: Active and Suspected Problems Gastritis (Acute) Elevated lactic acid level (Acute) - Physical Exam General: Alert, Oriented x3 Lungs: Clear to auscultation Cardiovascular: Regular rate, Regular Rhythm, No murmurs Abdomen: Bowel Sounds Present - He has no signs of recurrence of a hernia on his left inguinal area., Soft, Non Tender, Non-Distended Vital Signs Temp Pulse Resp BP Pulse Ox 98.0 F 74 16 151/93 H 96 06/17/18 14:18 06/17/18 14:18 06/17/18 14:18 06/17/18 14:18 06/17/18 14:18 Oxygen Delivery Method Room Air Laboratory Tests Past 24 Hrs 06/17/18 06/17/18 12:20 12:20 WBC 9.8 RBC 4.69 Hgb 15.5 Hct 45.4 MCV 96.8 H MCH 33.0 H MCHC 34.1 RDW 13.1 RDW Differential 46.1 H Plt Count 281 MPV 9.8 Immature Gran % (Auto) 0.200 Neut % (Auto) 67.2 Lymph % (Auto) 22.2 [place] % (Auto) 9.9 Eos % (Auto) 0.5 Baso % (Auto) 0.0 Absolute Neuts (auto) 6.6 Absolute Lymphs (auto) 2.18 Total Counted Not Reportable Sodium 139 Potassium 3.4 L Chloride 101 Carbon Dioxide 27.0 Anion Gap 11 BUN 19 H Creatinine 1.13 Estim Creat Clear Calc 67.78 Est GFR (MDRD) Af Amer 85 Est GFR (MDRD) Non-Af 70 BUN/Creatinine Ratio 16.8 Glucose 85 Calcium 9.1 Assessment/Plan All Active Problems Gastritis (Acute) Elevated lactic acid level (Acute) Abdominal pain (Acute) At this point I think that the pain he was experiencing the left lower quadrant could have been secondary to him vomiting and stretching the mesh that I have in the left groin area. With regards to his hiatal hernia does not show any signs of GI bleed at this time and I would try to give him clear liquids to see how he does. If he is not tolerating this then my plan will be to scope him sometime tomorrow.
[2018-06-17 19:58] VITALS: BP 154/101; PULSE 79; RESP 16; TEMP 36.9; O2SAT 98
[2018-06-17] MEDS: Zolpidem Tartrate 5 MG Tablet PO (23:25)
[2018-06-18 02:33] VITALS: BP 130/78; PULSE 78; RESP 14; TEMP 36.9; O2SAT 97
[2018-06-18] MEDS: Heparin Injection (Vial) 5,000 UNIT/ML VIAL 5000 UNIT SC (06:30)
[2018-06-18 08:01] VITALS: BP 123/93; PULSE 76; RESP 16; TEMP 36.6; O2SAT 96
--- NOTE | 2018-06-18 08:01 | PCM.PN.SRG ---
Patient Problems: Active and Suspected Problems Gastritis (Acute) Elevated lactic acid level (Acute) Subjective: Patient feeling better this morning. Rating p.o. Objective: Abdomen is soft - Physical Exam Vital Signs Temp Pulse Resp BP Pulse Ox 98.5 F 78 14 130/78 H 97 06/18/18 02:33 06/18/18 02:33 06/18/18 02:33 06/18/18 02:33 06/18/18 02:33 Oxygen Delivery Method Room Air Intake and Output for Last 24 Hours 06/16/18 06/17/18 06/18/18 23:59 23:59 23:59 Intake Total 1308 / 1518 9 / 9 1080.2 / 1080.2 Balance 1308 / 1518 2099 / 2099 1080.2 / 1080.2 Laboratory Tests Past 24 Hrs 06/17/18 06/17/18 12:20 12:20 WBC 9.8 RBC 4.69 Hgb 15.5 Hct 45.4 MCV 96.8 H MCH 33.0 H MCHC 34.1 RDW 13.1 RDW Differential 46.1 H Plt Count 281 MPV 9.8 Immature Gran % (Auto) 0.200 Neut % (Auto) 67.2 Lymph % (Auto) 22.2 [place] % (Auto) 9.9 Eos % (Auto) 0.5 Baso % (Auto) 0.0 Absolute Neuts (auto) 6.6 Absolute Lymphs (auto) 2.18 Total Counted Not Reportable Sodium 139 Potassium 3.4 L Chloride 101 Carbon Dioxide 27.0 Anion Gap 11 BUN 19 H Creatinine 1.13 Estim Creat Clear Calc 67.78 Est GFR (MDRD) Af Amer 85 Est GFR (MDRD) Non-Af 70 BUN/Creatinine Ratio 16.8 Glucose 85 Calcium 9.1 Medical Necessity - Tobacco Use Smoking Status: Former smoker Assessment/Plan All Active Problems Gastritis (Acute) Elevated lactic acid level (Acute) Abdominal pain (Acute) Okay to discharge I will see him in follow-up and schedule upper and lower endoscopy at that time.
[2018-06-18] MEDS: Pantoprazole Sodium 40 MG Tablet PO (08:04)
--- NOTE | 2018-06-18 09:48 | PCM.DC ---
- Discharge Diagnoses Current Active Problems: Current Active and Chronic Problems Gastritis (Acute) Elevated lactic acid level (Acute) You will use the following diet at home:: Regular - Low residue diet Discharge Activity: May not drive while taking narcotic pain medications. Allergies/Adverse Reactions: Allergies No Known Allergies Allergy (Verified 11/20/15 15:24) Medications to take at Discharge Lactobacillus Acidophilus [Acidophilus] 1 tablet PO TID tablet 06/18/18 Pantoprazole Sodium [Protonix] 40 mg PO DAILY #30 tab 06/18/18 The following prescriptions were given: Pantoprazole Sodium [Protonix] 40 mg PO DAILY #30 tab Primary Care Physician: Chidi Jeff MD [Primary Care Provider] - Please follow up with your Primary Care Physician in: in 2 weeks Test Results: Test results from this visit will be discussed in further detail at your follow-up appointment, if applicable. Please Follow Up With: Nando Regalado MD When: in 2 weeks to schedule EGD and colonoscopy
--- NOTE | 2018-06-18 09:50 | PCM.DC.SUM ---
Discharge Date and Diagnosis Date of Admission: 06/15/18 Date of Discharge: 06/18/18 - Primary Discharge Diagnosis Active and Suspected Problems 1. Left lower quadrant abdominal pain and mild lactic acidosis most probably abdominal wall pain secondary to left inguinal hernia mesh stretching, dehydration with vomiting and inflammatory pain: No sepsis. Sigmoid diverticulitis ruled out 2. Moderate hiatus hernia with GERD: 3. 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 Initially had generalized abdominal pain but now it is localized to left lower quadrant. CT abdomen shows sigmoid diverticulosis with no features of diverticulitis. Initially with left lower quadrant tenderness it was thought that he might have clinical mild sigmoid diverticulitis but later on it was learned it may be pain from the mesh with constant retching due to vomiting. He had left inguinal hernia repair with mesh by Dr. Regalado in the past. Dr. Regalado was consulted and he does not think he had sigmoid diverticulitis. He does not need antibiotic. Patient was seen and examined today. And tolerated soft diet today. General: Alert, Oriented x3, Cooperative HEENT: Atraumatic, PERRLA, EOMI, Normocephalic Neck: Supple, No JVD, Negative Carotid Bruits Lungs: Clear to auscultation, Normal air movement, No rhonchi, No wheeze Cardiovascular: Regular rate, Regular Rhythm, Normal S1, Normal S2, No murmurs Abdomen: Bowel Sounds Present, Soft, Non-Distended, no tenderness Extremities: No edema, Capillary Refill Less than 3 Seconds Skin: No rashes, No breakdown Musculoskeletal: No Tenderness to Palpation of Joints or Extremities, Arthritic Changes Neurological: Cranial nerves II-XII grossly intact Psych/Mental Status: Normal Affect, Appropriate 1. Left lower quadrant abdominal pain most probably abdominal wall pain secondary to left inguinal hernia mesh stretching: The patient has mild leukocytosis, 14,000 thousand, elevated lactic acid and left lower quadrant abdominal pain with tenderness which was thought to be due to inflammation, dehydration secondary to vomiting inguinal hernia mesh. Initially, patient was put on IV Cipro and Flagyl for suspicion of mild sigmoid diverticular disease but it was ruled later on by Dr. Regalado. Dr. Regalado does not think he has sigmoid diverticulitis. On probiotic. Leukocytosis has resolved. Patient moved his bowels. No hematemesis/hematochezia/melena. 2. Moderate hiatus hernia with GERD: On Protonix. Patient had EGD many years ago. Dr. Regalado advised follow-up after 2 weeks to schedule EGD and colonoscopy. 3. 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 It is unchanged from prior imaging since August 2014. No further workup needed. 4. Infrarenal abdominal aorta aneurysm: Outpatient follow-up DVT prophylaxis: On subcutaneous heparin. Discharge Activity: May not drive while taking narcotic pain medications. Home Medications: Medications to take at Discharge Lactobacillus Acidophilus [Acidophilus] 1 tablet PO TID tablet 06/18/18 Pantoprazole Sodium [Protonix] 40 mg PO DAILY #30 tab 06/18/18 Following Prescrptions Were Given to Patient: Pantoprazole Sodium [Protonix] 40 mg PO DAILY #30 tab Primary Care Physician: Chidi Jeff MD [Primary Care Provider] - Please follow up with your Primary Care Physician in: in 2 weeks Please Follow Up With: Nando Regalado MD When: in 2 weeks to schedule EGD and colonoscopy Medical Necessity - Tobacco Use Smoking Status: Former smoker Meaningful Use Info Meaningful Use Diagnoses (Choose all that apply): None applicable Code Visit Inpatient E&M: [id number] [facility] Hosp
== END 2018-06-18 10:55 | disposition home or self-care (01) | DRG 392 ==
LOC: ED 22:15 → MS3 06-15 00:21
PROVIDERS: Admitting Provider Hospitalist; Emergency Provider Emergency Medicine; Family Provider Internal Medicine; PCP Internal Medicine; Visit Provider Internal Medicine
DX: R10.32 Left lower quadrant pain (principal); E87.2 Acidosis; K91.5 Postcholecystectomy syndrome; E86.0 Dehydration; K44.9 Diaphragmatic hernia without obstruction or gangrene; K21.9 Gastro-esophageal reflux disease without esophagitis; Z90.49 Acquired absence of other specified parts of digestive tract; I71.4 Abdominal aortic aneurysm, without rupture; K52.9 Noninfective gastroenteritis and colitis, unspecified
CPT/HCPCS: 36415; 74177; 76705; 80048; 80053; 81001; 83605; 83690; 84484; 85025; 93005; 97802; 99284; J7030; J7040; Q9967; A4216; J0744; J2405

== ENCOUNTER 2018-07-23 05:43 | Day surgery (SDC) | payer BC, SELFPAY ==
[2018-07-23] VITALS (8 sets, daily range): BP systolic 131–159; BP diastolic 88–105; PULSE 52–73; RESP 14–16; TEMP 36.2–37.3; O2SAT 97–99; BMI 26.2
--- NOTE | 2018-07-23 | IMM_PTH ---
PATIENT: SALENA CLINE LOC: [facility] U#:[id number] AGE/SX: 63/M ROOM: RE07/23/[address]: Dr. Nando Regalado MD : 1955 BED: DIS: 07/23/2018 SPEC #: [id number] RECD: 07/26/18 09:41 STATUS: ARIANNA REQ #: [id number] MARCEL: 07/23/18 00:[address]: Nando Regalado DEPT: IMMUNOHISTOCHEMISTRY RECD BY: Yolanda Coleman ENTERED: 07/26/18 09:41 SP TYPE: IMMUNO OTHR DR: Dr. Chidi Jeff MD Tissues: B - Stomach, NOS Procedures: H Pylori (initial) PHYSICIAN & INSTITUTION [place] [address] SPECIMEN INFORMATION: Tissue Source: B - Antrum biopsy Clinical Info: Dysphagia, hiatal hernia, epigastric abdomen pain Specimen Number: [id number] CPT code: 04555 METHODOLOGY: Deparaffinized sections of prefer/formalin-fixed tissue or PAP/DQ stained slides are incubated with monoclonal/polyclonal antibodies/oligonucleotide probes. Localization is made via biotin free immunoperoxidase method. Appropriate controls are performed and reacted as expected. Results on target cell population are indicated in the following table: RESULTS: ANTIBODY / CLONE RESULT Block B H Pylori (polyclonal) negative These tests were developed and their performance characteristics determined by [facility]. They may not have been cleared or approved by the U.S. Food and Drug Administration. The FDA has determined that such clearance or approval is not necessary. INTERPRETATION: B. Antrum, biopsy: Negative for Helicobacter pylori organisms. SJ:[email or web address] 07/27/18
--- NOTE | 2018-07-23 | COLBX_PTH ---
PATIENT: SALENA CLINE LOC: [facility] U#:[id number] AGE/SX: 63/M ROOM: RE07/23/[address]: Dr. Nando Regalado MD : 1955 BED: DIS: 07/23/2018 SPEC #: [id number] RECD: 07/23/18 12:11 STATUS: ARIANNA MADHURI #: [id number] MARCEL: 07/23/18 00:[address]: Nando Regalado DEPT: SURGICAL PATHOLOGY RECD BY: Nathen Rodrigues ENTERED: 07/23/18 12:12 SP TYPE: COLON BX OTHR DR: Dr. Chidi Jeff MD Tissues: A - Small intestine biopsy B - Gastric mucous membrane C - Esophageal mucous membrane Procedures: Special Stain Group II Surgery Specimen Level IV Alcian Blue/PAS (control) HEADER OPERATION: EGD ([facility] [place]) PRE-OP DIAGNOSIS: Dysphagia, hiatal hernia, epigastric abdomen pain TISSUE SUBMITTED: A - Small intestine biopsy, B - Antrum biopsy for H. pylori and path, C - Distal esophageal biopsy MICROSCOPIC DIAGNOSIS A. Small intestine, biopsy: Fragments of small intestine mucosa, no pathologic diagnosis. B. Antrum, biopsy: Mild gastritis. C. Distal esophageal biopsy: Fragments of gastroesophageal mucosa with mild acute and chronic inflammation. Intestinal metaplasia (goblet cell metaplasia) is not identified. See comment. SJ:rg 07/26/18 COMMENT B. The results of immunohistochemistry for Helicobacter pylori will be reported separately ([id number]). C. Alcian blue/PAS stain with matched control is used in the evaluation of the specimen. This case has been reviewed in consultation with Dr. Carroll who concurs with the above diagnosis. MICROSCOPIC DESCRIPTION Slides are reviewed. GROSS DESCRIPTION A - Received in fixative is one container labeled with the patient's name and designated small intestine biopsy. The specimen consists of two irregular fragments of [place] soft tissue that in aggregate measure 0.5 x 0.4 x 0.1 cm. The specimen is totally submitted in one cassette. B - Received in fixative is one container labeled with the patient's name and designated antrum biopsy for H. pylori and pathology. The specimen consists of one irregular fragment of [place] soft tissue that measures 0.7 x 0.3 x 0.1 cm. The specimen is totally submitted in one cassette. C - Received in fixative is one container labeled with the patient's name and designated distal esophageal biopsy. The specimen consists of multiple irregular fragments of [place] soft tissue that in aggregate measure 1 x 0.2 x 0.1 cm. The specimen is totally submitted in one cassette. / JOHN:[email or web address] 07/23/18 TC:3 CPT: 78021 x3, 51534
--- NOTE | 2018-07-23 07:17 | OP.ENDO_ITS ---
Patient Name: Thuan Portillo Procedure Date: 07/23/2018 6:54 AM Date of : 1955 Age: 63 Procedure: Upper GI endoscopy Indications: Epigastric abdominal pain, Dysphagia, Hiatal hernia Providers: Nando Regalado MD Referring MD: Nando Regalado MD Medicines: See the Anesthesia note for documentation of the administered medications Complications: No immediate complications. Procedure: Pre-Anesthesia Assessment: - Prior to the procedure, a History and Physical was performed, and patient medications and allergies were reviewed. The patient's tolerance of previous anesthesia was also reviewed. The risks and benefits of the procedure and the sedation options and risks were discussed with the patient. All questions were answered, and informed consent was obtained. Prior Anticoagulants: The patient has taken no previous anticoagulant or antiplatelet agents. ASA Grade Assessment: III - A patient with severe systemic disease. After reviewing the risks and benefits, the patient was deemed in satisfactory condition to undergo the procedure. After obtaining informed consent, the endoscope was passed under direct vision. Throughout the procedure, the patient's blood pressure, pulse, and oxygen saturations were monitored continuously. The gastroscope was introduced through the mouth, and advanced to the second part of duodenum. The upper GI endoscopy was accomplished without difficulty. The patient tolerated the procedure well. Scope In: 7:04:11 AM Scope Out: 7:09:18 AM Total Procedure Duration Time 0 hours 5 minutes 7 seconds Findings: A medium-sized hiatal hernia was present. LA Grade A (one or more mucosal breaks less than 5 mm, not extending between tops of 2 mucosal folds) esophagitis with no bleeding was found 40 cm from the incisors. Biopsies were taken with a cold forceps for histology. The Z-line was regular and was found 40 cm from the incisors. hiatal hernia was from 40cm to 45cm. Localized mild inflammation characterized by erythema was found in the prepyloric region of the stomach. Biopsies were taken with a cold forceps for Helicobacter pylori testing. No gross lesions were noted in the entire examined duodenum. Biopsies for histology were taken with a cold forceps for evaluation of celiac disease. Impression: - Medium-sized hiatal hernia. - LA Grade A reflux esophagitis. Biopsied. - Z-line regular, 40 cm from the incisors. - Gastritis. Biopsied. - No gross lesions in the entire examined duodenum. Biopsied. Recommendation: - Await pathology results. - He will need to be worked up with esophageal mamometry. He will also need a 48 hour pH probe. - Repeat upper endoscopy in 3 years for surveillance based on pathology results. - Return to my office in 1 week. - Continue present medications. Procedure Code(s): --- Professional --- 02035, Esophagogastroduodenoscopy, flexible, transoral; with biopsy, single or multiple Diagnosis Code(s): --- Professional --- K44.9, Diaphragmatic hernia without obstruction or gangrene K21.0, Gastro-esophageal reflux disease with esophagitis K29.70, Gastritis, unspecified, without bleeding R10.13, Epigastric pain R13.10, Dysphagia, unspecified CPT copyright 2017 [employer]. All rights reserved. The codes documented in this report are preliminary and upon vocational case manager review may be revised to meet current compliance requirements. MD Nando Saavedra MD 07/23/2018 7:16:34 AM This report has been signed electronically. Number of Addenda: 0 Note Initiated On: 07/23/2018 6:54 AM
== END 2018-07-23 08:14 | disposition home or self-care (01) ==
LOC: EN 05:43 → AC 05:44
PROVIDERS: Family Provider Internal Medicine; PCP Internal Medicine; Referring Provider Surgery; Visit Provider Surgery
PROC: 0DJ08ZZ Inspection of Upper Intestinal Tract, Via Natural or Artificial Opening Endoscopic (ICD-10-PCS; CPT 43235; principal; 2018-07-23 06:55)
DX: K29.70 Gastritis, unspecified, without bleeding (principal); K21.0 Gastro-esophageal reflux disease with esophagitis; K44.9 Diaphragmatic hernia without obstruction or gangrene; K40.90 Unilateral inguinal hernia, without obstruction or gangrene, not specified as recurrent; G47.30 Sleep apnea, unspecified; Z87.891 Personal history of nicotine dependence; Z79.899 Other long term (current) drug therapy
CPT/HCPCS: 43239; 88305; 88313; 88342; J7120; J2405

== ENCOUNTER 2019-03-24 07:48 | Day surgery (SDC) | payer BC, SELFPAY ==
[2019-03-01 07:43] VITALS: BMI 25.8
--- NOTE | 2019-03-01 08:01 | HP_ITS ---
Intake Vital Signs 03/01/19 Height 5 ft 8 in 03/01/19 Weight: 170 lb 03/01/19 Body Mass Index (BMI) 25.8 03/01/19 Blood Pressure 159/102 H 03/01/19 Blood Pressure Location Rt brachial 03/01/19 Blood Pressure Position Sitting 03/01/19 Respiratory Rate 18 03/01/19 Pulse Rate 109 H 03/01/19 Pulse Source Monitor 03/01/19 Temperature 98.2 F 03/01/19 Temperature Source Oral 03/01/19 Pulse Ox 97 03/01/19 Oxygen Delivery Method room air Intake Visit Reasons: Hiatal Hernia - Former [facility] Patient- Self Ref Chief Complaint: intractable Nausea and vomiting Resident Physician In Radiology Required: No Is patient in pain?: No Allergies No Known Allergies Allergy (Verified 03/01/19 07:45) Medications Saw/Vit E/Sod Catina/Lyc/Beta/Pyg [Prostate Health Caplet] 2 ea PO BID 07/21/18 [History Confirmed 03/01/19] omeprazole 20 mg capsule,delayed release 20 mg PO DAILY 03/01/19 [History Confirmed 03/01/19] ondansetron HCl 4 mg tablet 4 mg PO TID PRN 5 Days #20 tab 03/01/19 [Rx Confirmed 03/01/19] PFSH Medical History Gastritis (Acute) Elevated lactic acid level (Acute) Abdominal pain (Acute) Inguinal hernia (Chronic) Hiatal hernia (Chronic) Surgical History History of esophagogastroduodenoscopy (EGD) (Acute ~07/23/18) History of hernia repair (Acute) History of laparoscopic cholecystectomy (Acute) Family History Father Cancer lymphoma Social History Smoking Status: Never smoker alcohol intake: never substance use type: does not use HPI HPI HPI: SALENA CLINE, is a 63 M who presents to the office today for HPI HPI Surgical H&P: Yes HPI: SALENA CLINE, is a 63 M who presents to the office today for reevaluation of his dysphagia and hiatal hernia. I did a biopsy of the small intestine which came back as fragments of small intestine with no pathologic diagnosis. Did a biopsy of some mild gastritis in the antrum which showed no signs of H. pylori. Patient was known to have some esophagitis in his distal esophagus which showed mild acute and chronic inflammation but no intestinal metaplasia was identified. I reviewed the pictures that I obtained with the patient he does have a moderate sized hiatal hernia which is located from 40-45 cm. At present time he does not suffer from significant amounts of reflux. And he only occasionally will use a proton pump inhibitor. He has had a month long history of increasing nausea and vomiting up bile. Feels that things are just stuck in his chest and just are going through appropriately. He has been increasing his Prilosec to daily but not really noticing any desired effects. I think we are to point where we need to continue to work him up for his hiatal hernia with a esophageal manometry and a 48-hour pH probe ROS General General: No weight change, appetite, fatigue, colon cancer, breast cancer or weakness HEENT HEENT: No difficulty swallowing, eye injury, eye surgery, swollen glands or hoarseness Endo Endocrine: No thyroid disease, diabetes mellitus, thyroid cancer, Hair loss, heat intolerance or cold intolerance Skin Skin: No rash or changing moles Breast Breast: No left breast lump, right breast lump, nipple discharge, breast pain, abnormal mammogram, abnormal US or breast enlargement Musc Musculoskeletal: Yes back problems and gout; no arthritis, rheumatoid arthritis or joint pain Cardio Cardiovascular: No murmur, pacemaker, heart disease, atrial fibrillation, high blood pressure, heart attack, heart stent, palpitations, shortness of breat with exertion or chest pain Psych Psychiatric: No depression, anxiety or hearing voices Resp Respiratory: No shortness of breath, Yes sleep apnea, No cough, No COPD, No asthma, No emphysema, No wheezing Gastro Gastrointestinal: No abdominal pain, No nausea or vomiting, No diarrhea, No constipation, No blood in stool, No acid reflux, Yes hemorrhoids, No ulcers, No gallbladder problem, No black,tarry stools Quintin Hematologic: No blood thinners, No blood disorders, No bleeding, No anemia, No blood clots Neuro Neurologic: No weakness Exam Const General: no acute distress, well developed, well hydrated Orientation: oriented to person, oriented to place, oriented to time [facility] Head: normocephalic, atraumatic Ears: external ears normal Mouth: moist mucous membranes Eyes Sclera: sclerae normal Pupils: normal by confrontation Neck Neck: no lymphadenopathy noted Neck mass: No Thyroid: thyroid normal, symmetrical Chest Chest palpation & inspection: normal inspection of the chest Breast Palpation: No nipple discharge Resp Effort & Inspection: normal respiratory effort Auscultation: clear to auscultation bilaterally Percussion: percussion normal Cardio Rate: regular rate Rhythm: regular rhythm Heart Sounds: no murmurs GI Palpation: soft, no hepatosplenomegaly, no masses, nontender Rectal Exam: other Other: Rectal exam deferred. Extrem General: normal to inspection, no clubbing, cyanosis or edema Assessment & Plan Problems 1. Epigastric abdominal pain R10.13 2. Esophageal dysphagia R13.10 3. Hiatal hernia K44.9 4. Bilious vomiting with nausea R11.14 Plan I have discussed the above with the patient. I have offered the patient esophagogastroduodenoscopy with 48-hour pH probe for evaluation. I have explained the risks/benefits of the procedure and described the procedure. I have discussed the risks with the patient, including but not limited to: infection, bleeding, perforation of the GI tract requiring emergency surgery, inability to complete the procedure, injury to any internal organs, complications of anesthesia, etc. - the patient understands and agrees to proceed. I have answered all the patient's questions to the patient's satisfaction and the patient has no further questions. The patient has been given instructions for the colon cleansing preparation. Prior to this test we are going to obtain esophageal manometry. Once this is completed I am probably going to get a gastric emptying study on him to make sure that things are leaving his stomach appropriately before I offer him a surgery. I have a feeling that his diet hiatal hernia is actually quite larger than it was last year. And prior to any surgery on his stomach he is going to need to undergo an elective colonoscopy sometime this year prior to any Kd fundoplication we performed Medications New: ondansetron HCl 4 mg PO TID 5 days PRN 20 tabs 0RF nausea and vomiting Coding Level of Care Code Off vis,est,level 3 Diagnoses Epigastric abdominal pain R10.13 Esophageal dysphagia R13.10 ??Dysphagia type: esophageal phase Hiatal hernia K44.9 Bilious vomiting with nausea R11.14 ??Vomiting type: bilious vomiting 03/01/19 0802 <Electronically signed by Nando oglesby MD> Date _ Nando Regalado MD I have re-examined the patient. There are no clinical changes since date of exam.
[2019-03-24 08:08] VITALS: BP 136/91; PULSE 77; RESP 16; TEMP 36.6; O2SAT 94
== END 2019-03-24 08:46 | disposition home or self-care (01) ==
PROVIDERS: Surgery; Family Provider Internal Medicine; PCP Internal Medicine; Referring Provider Surgery; Visit Provider Surgery
PROC: F00ZJWZ Instrumental Swallowing and Oral Function Assessment using Swallowing Equipment (ICD-10-PCS; CPT 43235; principal; 2019-03-24 07:55)
DX: R10.13 Epigastric pain (principal); R13.10 Dysphagia, unspecified; R11.14 Bilious vomiting
CPT/HCPCS: 78258

== ENCOUNTER 2019-03-30 07:19 | Day surgery (SDC) | payer BC, SELFPAY ==
[2019-03-01 07:43] VITALS: BMI 25.8
--- NOTE | 2019-03-01 08:01 | HP_ITS ---
Intake Vital Signs 03/01/19 Height 5 ft 8 in 03/01/19 Weight: 170 lb 03/01/19 Body Mass Index (BMI) 25.8 03/01/19 Blood Pressure 159/102 H 03/01/19 Blood Pressure Location Rt brachial 03/01/19 Blood Pressure Position Sitting 03/01/19 Respiratory Rate 18 03/01/19 Pulse Rate 109 H 03/01/19 Pulse Source Monitor 03/01/19 Temperature 98.2 F 03/01/19 Temperature Source Oral 03/01/19 Pulse Ox 97 03/01/19 Oxygen Delivery Method room air Intake Visit Reasons: Hiatal Hernia - Former [facility] Patient- Self Ref Chief Complaint: intractable Nausea and vomiting Table Games Shift Manager Required: No Is patient in pain?: No Allergies No Known Allergies Allergy (Verified 03/01/19 07:45) Medications Saw/Vit E/Sod Catina/Lyc/Beta/Pyg [Prostate Health Caplet] 2 ea PO BID 07/21/18 [History Confirmed 03/01/19] omeprazole 20 mg capsule,delayed release 20 mg PO DAILY 03/01/19 [History Confirmed 03/01/19] ondansetron HCl 4 mg tablet 4 mg PO TID PRN 5 Days #20 tab 03/01/19 [Rx Confirmed 03/01/19] PFSH Medical History Gastritis (Acute) Elevated lactic acid level (Acute) Abdominal pain (Acute) Inguinal hernia (Chronic) Hiatal hernia (Chronic) Surgical History History of esophagogastroduodenoscopy (EGD) (Acute ~07/23/18) History of hernia repair (Acute) History of laparoscopic cholecystectomy (Acute) Family History Father Cancer lymphoma Social History Smoking Status: Never smoker alcohol intake: never substance use type: does not use HPI HPI HPI: SALENA CLINE, is a 63 M who presents to the office today for HPI HPI Surgical H&P: Yes HPI: SALENA CLINE, is a 63 M who presents to the office today for reevaluation of his dysphagia and hiatal hernia. I did a biopsy of the small intestine which came back as fragments of small intestine with no pathologic diagnosis. Did a biopsy of some mild gastritis in the antrum which showed no signs of H. pylori. Patient was known to have some esophagitis in his distal esophagus which showed mild acute and chronic inflammation but no intestinal metaplasia was identified. I reviewed the pictures that I obtained with the patient he does have a moderate sized hiatal hernia which is located from 40-45 cm. At present time he does not suffer from significant amounts of reflux. And he only occasionally will use a proton pump inhibitor. He has had a month long history of increasing nausea and vomiting up bile. Feels that things are just stuck in his chest and just are going through appropriately. He has been increasing his Prilosec to daily but not really noticing any desired effects. I think we are to point where we need to continue to work him up for his hiatal hernia with a esophageal manometry and a 48-hour pH probe ROS General General: No weight change, appetite, fatigue, colon cancer, breast cancer or weakness HEENT HEENT: No difficulty swallowing, eye injury, eye surgery, swollen glands or hoarseness Endo Endocrine: No thyroid disease, diabetes mellitus, thyroid cancer, Hair loss, heat intolerance or cold intolerance Skin Skin: No rash or changing moles Breast Breast: No left breast lump, right breast lump, nipple discharge, breast pain, abnormal mammogram, abnormal US or breast enlargement Musc Musculoskeletal: Yes back problems and gout; no arthritis, rheumatoid arthritis or joint pain Cardio Cardiovascular: No murmur, pacemaker, heart disease, atrial fibrillation, high blood pressure, heart attack, heart stent, palpitations, shortness of breat with exertion or chest pain Psych Psychiatric: No depression, anxiety or hearing voices Resp Respiratory: No shortness of breath, Yes sleep apnea, No cough, No COPD, No asthma, No emphysema, No wheezing Gastro Gastrointestinal: No abdominal pain, No nausea or vomiting, No diarrhea, No constipation, No blood in stool, No acid reflux, Yes hemorrhoids, No ulcers, No gallbladder problem, No black,tarry stools Quintin Hematologic: No blood thinners, No blood disorders, No bleeding, No anemia, No blood clots Neuro Neurologic: No weakness Exam Const General: no acute distress, well developed, well hydrated Orientation: oriented to person, oriented to place, oriented to time [facility] Head: normocephalic, atraumatic Ears: external ears normal Mouth: moist mucous membranes Eyes Sclera: sclerae normal Pupils: normal by confrontation Neck Neck: no lymphadenopathy noted Neck mass: No Thyroid: thyroid normal, symmetrical Chest Chest palpation & inspection: normal inspection of the chest Breast Palpation: No nipple discharge Resp Effort & Inspection: normal respiratory effort Auscultation: clear to auscultation bilaterally Percussion: percussion normal Cardio Rate: regular rate Rhythm: regular rhythm Heart Sounds: no murmurs GI Palpation: soft, no hepatosplenomegaly, no masses, nontender Rectal Exam: other Other: Rectal exam deferred. Extrem General: normal to inspection, no clubbing, cyanosis or edema Assessment & Plan Problems 1. Epigastric abdominal pain R10.13 2. Esophageal dysphagia R13.10 3. Hiatal hernia K44.9 4. Bilious vomiting with nausea R11.14 Plan I have discussed the above with the patient. I have offered the patient esophagogastroduodenoscopy with 48-hour pH probe for evaluation. I have explained the risks/benefits of the procedure and described the procedure. I have discussed the risks with the patient, including but not limited to: infection, bleeding, perforation of the GI tract requiring emergency surgery, inability to complete the procedure, injury to any internal organs, complications of anesthesia, etc. - the patient understands and agrees to proceed. I have answered all the patient's questions to the patient's satisfaction and the patient has no further questions. The patient has been given instructions for the colon cleansing preparation. Prior to this test we are going to obtain esophageal manometry. Once this is completed I am probably going to get a gastric emptying study on him to make sure that things are leaving his stomach appropriately before I offer him a surgery. I have a feeling that his diet hiatal hernia is actually quite larger than it was last year. And prior to any surgery on his stomach he is going to need to undergo an elective colonoscopy sometime this year prior to any Kd fundoplication we performed Medications New: ondansetron HCl 4 mg PO TID 5 days PRN 20 tabs 0RF nausea and vomiting Coding Level of Care Code Off vis,est,level 3 Diagnoses Epigastric abdominal pain R10.13 Esophageal dysphagia R13.10 ??Dysphagia type: esophageal phase Hiatal hernia K44.9 Bilious vomiting with nausea R11.14 ??Vomiting type: bilious vomiting 03/01/19 0802 <Electronically signed by Nando oglesby MD> Date _ Nando Regalado MD I have re-examined the patient. There are no clinical changes since date of exam.
[2019-03-30 07:32] VITALS: BP 140/94; PULSE 73; RESP 18; TEMP 36.7; O2SAT 96; BMI 25.7
[2019-03-30 08:51] VITALS: BP 104/67; BP 140/94; PULSE 87; RESP 16; TEMP 36.7; O2SAT 98
[2019-03-30 08:55] VITALS: BP 123/87; BP 140/94; PULSE 77; RESP 16; O2SAT 95
--- NOTE | 2019-03-30 08:55 | OP.ENDO_ITS ---
03/30/2019 Ch[address] Jeff [address] [place] [address] Re : Upper GI endoscopy procedure for Thuan Victoriareema Dear Dr. Jeff This procedure was performed on Saturday, March 30, 2019. My impressions and recommendations are as follows: Impressions : - Large hiatal hernia. - Normal stomach. No specimens collected. - Normal examined duodenum. No specimens collected. - An esophageal pH probe catheter was placed. Recommendations : - Discharge patient to home. - Resume previous diet. - Continue present medications. - Repeat upper endoscopy (date not yet determined). - Return to my office in 1 week. My findings are described in the full procedure note, which is enclosed. If I can be of further assistance, please feel free to contact me at Doctor phone number(s): , Fax: [phone], Work: . Sincerely, MD Nando Saavedra MD 03/30/2019 8:54:45 AM This report has been signed electronically.
[2019-03-30 09:00] VITALS: BP 140/94; BP 142/94; PULSE 68; RESP 16; O2SAT 97
[2019-03-30 09:05] VITALS: BP 140/94; BP 161/98; PULSE 65; RESP 16; TEMP 36.3; O2SAT 100
[2019-03-30 10:01] VITALS: BP 140/94
== END 2019-03-30 10:02 | disposition home or self-care (01) ==
LOC: EN 07:19 → AC 07:20
PROVIDERS: Family Provider Internal Medicine; PCP Internal Medicine; Referring Provider Internal Medicine; Visit Provider Surgery
PROC: (CPT 43235; principal; 2019-03-30 08:25)
DX: R13.14 Dysphagia, pharyngoesophageal phase (principal); R11.14 Bilious vomiting; K44.9 Diaphragmatic hernia without obstruction or gangrene; R10.13 Epigastric pain; Z79.899 Other long term (current) drug therapy
CPT/HCPCS: 43235; 91034; J7120

== ENCOUNTER 2019-05-20 05:53 | Day surgery (SDC) | payer BC, SELFPAY ==
[2019-05-20 06:10] VITALS: BP 126/89; PULSE 73; RESP 16; TEMP 36.6; O2SAT 97; BMI 25.1
--- NOTE | 2019-05-20 07:00 | H&P.OPEN ---
History of Present Illness Date of Admission: 05/20/19 The patient is a 63 year old M who presents for screening colonoscopy Past Medical/Surgical History - Planned Operation Planned Operative Procedure/s: cscope open access Date of Operative Procedure: 05/20/19 Permit Signed: No S.O.S: No Is This Patient Having a Total Joint: No - Previous Hospitalizations/Surgeries HX Hospitalizations: No HX of Surgeries: gall bladder, lower hernia,. egd 03/2019 Any Problems With Anesthesia: No You/Your Family Experience Fever (Hyperthermia) With Anes: No Cholinesterase deficiency: No - Cardiovascular Hx Chest Pain within Last 2 months: No Hx of Irregular Heartbeat and/or Afib: No Hx Heart Attack: No Hx Congestive Heart Failure: No Hx Rheumatic Fever: No Hx Hypertension: No Hx Internal Defibrillator: No Hx Pacemaker: No Hx Cardiac Catheterization: No Hx Cardiac Surgery/Stents/Etc.: No Hx Stress Test: No HX Edema: No Hx Pain in Legs when Walking/Leg Cramps: No - Respiratory Chronic Cough: No HX of Shortness of Breath: No Hoarseness: No Hx Chronic Obstructive Pulmonary Disease (COPD): No Hx Asthma: No Hx Emphysema: No Hx Sleep Apnea: Yes CPAP: Yes BIPAP: No Hx Oxygen Use at Home: No Hx Respiratory Tract Infection/Cold (presently): No Result (for STOP score): Positive Hx Smoking: No - . Smoking Status: Never smoker - Gastrointestinal Hx Gastroesophageal Reflux: Yes Controlled With Meds: Yes - . Hx Gastrointestinal Disorders: Yes - diverticulosis Hx Gastrointestinal Bleed: No Hx Ulcer: No Hx Hiatal Hernia: Yes Difficulty Chewing/Swallowing: Yes - troubles with swallowing occ Recent Onset of Swallowing Problems: No Special diet followed at home: No Hx Unplanned Weight Loss of 20#: No HX Unplanned Weight Gain of 20#: No - Neurological Hx Seizures: No HX Syncope/Blackout Spells/Unconsciousness: No Hx CVA/Stroke: No Hx Transient Ischemic Attacks (TIA): No Hx Multiple Sclerosis: No Hx Parkinson's Disease: No Hx Head/Neck Injury: No Hx Headaches: No Hx Back Injury/Pain: Yes - SCIATICA- HERNIATED DISC Recent Onset of Speech Difficulty: No Restless Legs: No Does patient have nerve stimulator: No Patient instructed to have device shut off: No Rep notified?: No - Blood Disorder Hx Leukemia: No Bleeding Tendencies: No Hx Deep Vein Thrombosis: No Hx High Cholesterol: No Blood Transmitted Disease: No Hx Hepatitis: No Hx Cirrhosis: No Hx Anemia: No Hx Blood Disorders: No - Genitourinary Hx Renal Disease: No Hx Dialysis: No - Musculoskeletal Hx Arthritis: No Hx Rheumatoid Arthritis: No Hx Gout: Yes Recent Onset of an Orthopedic Problem: No - Endocrine Hx Diabetes: No Insulin: No Thyroid Disease: No Hx Steroid Therapy: No - Psycho/Social Hx Substance Use: No Hx Alcohol Use: No Hx Anxiety: No Hx Depression: No Mental Illness: No Hx Dementia: No - Miscellaneous Hx Cancer: No Recent Exposure to Contagious Disease: No Active MRSA: No Hx of C-Diff: No Any Loose Teeth: No - full set of dentures Allergies No Known Allergies Allergy (Verified 05/18/19 08:47) Paternal Family History: Family History (Last Reviewed 03/01/19 @ 07:59 by Nando Regalado MD) Father Cancer - - lymphoma Maternal Family History: Family History (Last Reviewed 03/01/19 @ 07:59 by Nando Regalado MD) Father Cancer - - AIDP - Discharge Is Pt Admitted From a Retirement, or a Long Term: No Who Could Help: family After D/C, Where Do you Plan to Go: Return Home - Physical Exam General: Alert, Oriented x3 Lungs: Clear to auscultation Cardiovascular: Regular rate, Regular Rhythm, No murmurs Abdomen: Bowel Sounds Present, Soft, Non Tender, Non-Distended Vital Signs Temp Pulse Resp BP Pulse Ox 97.8 F 73 16 126/89 H 97 05/20/19 06:10 05/20/19 06:10 05/20/19 06:10 05/20/19 06:10 05/20/19 06:10 Oxygen Delivery Method Room Air Weight: 170 lb 3.15 oz Body Mass Index (BMI) 25.1 Assessment/Plan All Active Problems (Last Reviewed 03/01/19 @ 07:59 by Nadno Regalado MD) Gastritis (Acute) Elevated lactic acid level (Acute) Abdominal pain (Acute) Plan is to perform a colonoscopy. Surgery Risks - Colonoscopy Risks Include but are not Limited To: Risks include but are not limited to: Bleeding, perforation requiring further surgery, inability to complete colonoscopy requiring barium enema.
--- NOTE | 2019-05-20 07:18 | OP.ENDO_ITS ---
05/20/2019 Chidi Jeff [address] [place] [address] Re : Colonoscopy procedure for Thuan Portillo Dear Dr. Jeff This procedure was performed on Monday, May 20, 2019. My impressions and recommendations are as follows: Impressions : - Non-bleeding internal hemorrhoids. No specimens collected. - Diverticulosis in the sigmoid colon. No specimens collected. - The examined portion of the ileum was normal. - The examination was otherwise normal. Recommendations : - Discharge patient to home. - Resume previous diet. - Continue present medications. - Repeat colonoscopy in 10 years for screening purposes. - Return to primary care physician PRN. My findings are described in the full procedure note, which is enclosed. If I can be of further assistance, please feel free to contact me at Doctor phone number(s): , Fax: [phone], Work: . Sincerely, MD Nando Saavedra MD 05/20/2019 7:18:14 AM This report has been signed electronically.
[2019-05-20 07:19] VITALS: BP 126/89; BP 138/85; PULSE 56; RESP 16; TEMP 36.4; O2SAT 97
[2019-05-20 07:21] VITALS: BP 126/89; BP 139/88; PULSE 69; RESP 16; O2SAT 99
[2019-05-20 07:30] VITALS: BP 126/89; BP 139/96; PULSE 68; RESP 18; O2SAT 98
[2019-05-20 07:35] VITALS: BP 126/89; BP 128/81; PULSE 61; RESP 18; TEMP 36.4; O2SAT 99
[2019-05-20 07:59] VITALS: BP 126/89
== END 2019-05-20 08:04 | disposition home or self-care (01) ==
LOC: EN 05:54 → AC 05:55
PROVIDERS: Family Provider Internal Medicine; PCP Internal Medicine; Referring Provider Surgery; Visit Provider Surgery
PROC: 0DJD8ZZ Inspection of Lower Intestinal Tract, Via Natural or Artificial Opening Endoscopic (ICD-10-PCS; CPT 45378; principal; 2019-05-20 06:55)
DX: Z12.11 Encounter for screening for malignant neoplasm of colon (principal); K57.30 Diverticulosis of large intestine without perforation or abscess without bleeding; K64.8 Other hemorrhoids; Z86.010 Personal history of colon polyps; G47.30 Sleep apnea, unspecified; K21.9 Gastro-esophageal reflux disease without esophagitis
CPT/HCPCS: 45378; J7120; J2405

== ENCOUNTER 2022-02-15 11:58 | Emergency (ER) | payer MEDICARE, SELFPAY ==
[2022-02-15 11:59] VITALS: BP 144/109; PULSE 113; RESP 19; TEMP 36.2; O2SAT 98; BMI 23.6
--- NOTE | 2022-02-15 12:22 | EDS_ITS ---
HPI History of Present Illness Chief Complaint: General Illness Informant: patient Onset/Context/Timing Onset: Days (6-7) Context: Gradual Onset Timing: Continuous Quality: nausea, occ vomiting and diarrhea Location: abd Current Severity: Moderate Maximum Severity: Moderate Worsened by: eating Relieved by: nothing; tried ondansetron Associated Symptoms Associated Symptoms ED: cough Narrative Narrative: Patient has had an illness for the past 6 or 7 days, fevers, chills, myalgias, malaise and fatigue, and what seems to be a flareup of chronic GI issues including nausea, vomiting, diarrhea. He did a home COVID test and it is positive; he is unvaccinated, did not leave the general area recently and does not know where he got it from. He went to urgent care today and had another rapid test that was positive. He states he is here because they told him it might be a good idea to go to the ER and get some IV fluids and something for your nausea. He denies any cough or shortness of breath. He takes no medications for other medical problems, except for an occasional PPI that he does not take regularly after he had a scope and was told he had irritation in his bowels. [facility] Medical History (Updated 02/15/22 @ 14:[address] Deep Duenas MD) Gastritis Hiatal hernia Home Medications saw-vit E-sod [id number] 2 ea PO BID 07/21/18 [History Last Taken Unknown] omeprazole 20 mg capsule,delayed release 20 mg PO DAILY 03/01/19 [History Last Taken 03/20/19] cholesterol-soybean oil-C-E 200 gm PO DAILY 03/28/19 [History Last Taken Unknown] metoclopramide HCl 10 mg PO Q6H PRN #20 tab 02/15/22 [Rx Last Taken Unknown] Allergy/AdvReac Type Severity Reaction Status Date / Time No Known Allergies Allergy Verified 02/15/22 12:02 Family History Father Cancer lymphoma Surgical History History of esophagogastroduodenoscopy (EGD) (~07/23/18) History of hernia repair History of laparoscopic cholecystectomy Social History Smoking Status: Never smoker alcohol intake: never substance use type: does not use ROS ROS ED Constitutional Constitutional ED: Reports body ache(s), chills, fatigue, fever(s), headache(s) and malaise Eyes Eyes: Denies change in vision or diplopia ENT ENT ED: Denies rhinorrhea or sore throat Cardiovascular Cardiovascular: Denies chest pain or palpitations Respiratory/Chest Respiratory/Chest: Denies cough, dyspnea or dyspnea on exertion Gastrointestinal Gastrointestinal: Reports abdominal pain, diarrhea, nausea and vomiting Genitourinary Genitourinary ED: Denies dysuria or hematuria Musculoskeletal Musculoskeletal: Denies back pain or neck pain Integumentary Denies abscess or rash Neurologic Neurologic: Reports headache(s); Denies paresthesias or weakness Psychiatric Psychiatric: Denies anxiety or suicidal thoughts EXAM Physical Exam Const Vital Signs: 02/15/22 11:59 02/15/22 12:46 Temperature 97.2 F L Temperature Source Temporal Pulse Rate 113 H Respiratory Rate 19 H Respiratory Effort Normal Blood Pressure 144/109 H Blood Pressure Mean 120 Pulse Ox 98 Oxygen Delivery Method Room Air Positive well nourished and well developed Constitutional Narrative: Malaised-appearing, no distress General Appearance ED: well developed and NAD HEENT Reports moist mucous membranes normocephalic and atraumatic Eyes PERRL and EOMs intact bilaterally Neck full ROM and supple Resp normal respiratory effort and clear to auscultation bilaterally Cardio regular rate, regular rhythm and no murmurs Rate: tachycardic GI non-distended GI Narrative: Very mild diffuse nonfocal tenderness without guarding or rebound Auscultation: normoactive bowel sounds Palpation: soft Back/Spine no CVA tenderness General Back: other FROM Extremity normal to inspection and no calf tenderness General Extremety ED: Negative for edema, pulses abnormal or tenderness General Extremity: Negative for edema or pulses abnormal Neuro oriented x3, CN's II-XII intact bilaterally and no sensory deficits noted Sensorium / Orientation: awake and alert Motor Exam: strength 5/5 throughout Skin no rashes or lesions noted and no wounds MDM MDM MDM Narrative Medical decision making narrative: Patient does have slight elevation of his BUN and creatinine indicating mild dehydration and need for the IV fluids he was given here. After that and dicyclomine, Reglan, and IV pantoprazole, he feels much better and is tolerating oral fluids. He presents too late to start on any of the COVID drugs such as Paxil COVID since he is outside of the initial 5 days of symptoms, this time I feel he is stable for discharge home, given a prescription for some Reglan, and given appropriate discharge instructions regarding COVID and reasons to return. Lab Data Attestation: I reviewed the patient's lab results. Labs: Laboratory Results - last 24 hr 02/15/22 12:35 Sodium 137 Potassium 4.0 Chloride 102 Carbon Dioxide 27.0 Anion Gap 8 BUN 36 H Creatinine 1.45 H Estim Creat Clear Calc 50.79 Est GFR (MDRD) Af Amer 63 Est GFR (MDRD) Non-Af 52 L BUN/Creatinine Ratio 24.8 H Glucose 124 H Calcium 9.7 Discharge Plan Triage Chief Complaint: General Illness ED Provider: Deep Duenas Dx/Rx/DC Orders Clinical Impression: Dehydration, mild, Nausea vomiting and diarrhea, COVID-19 Instructions: Coronavirus Disease 2019 (COVID-19): Caring for Yourself or Others Prescriptions: New metoclopramide HCl [metoclopramide HCl] 10 MG tablet 10 mg PO Q6H PRN (Reason: nausea and vomiting) Qty: 20 RF: 0 No Action omeprazole 20 mg capsule,delayed release(DR/EC) 20 mg PO DAILY RF: 0 saw-vit E-sod [id number] 1 EACH tablet 2 ea PO BID RF: 0 cholesterol-soybean oil-C-E 200 GM powder 200 gm PO DAILY RF: 0 Primary Care Provider: Chidi Jeff Referrals: Chidi Jeff MD [Primary Care Provider] - As Needed Activity Restrictions/Additional Instructions: Try to get a home portable pulse oximeter and closely watch your oxygen levels periodically. If you stay below 90% for more than a minute or so, and/or you are feeling like your breathing is getting worse, return to the emergency department for further evaluation. Disposition Disposition: Home, Self Care
[2022-02-15] MEDS: Dicyclomine 20 MG/2 ML Vial IM (12:36)
[2022-02-15] MEDS: 0.9% Normal Saline 1,000 ML 999 ML IV (12:36)
[2022-02-15] MEDS: Metoclopramide 10 MG/2 ML Vial 5 MG IV (12:36)
[2022-02-15 13:06] LABS: Anion Gap 8 (5-15); BUN 36 mg/dL (7-18); BUN/Creat Ratio 24.8 RATIO (10-20); Calcium,Total 9.7 mg/dL (8.5-10.1); Chloride 102 mmol/L (98-107); Creatinine, Serum 1.45 mg/dL (0.70-1.30); EST Glomerular Filtration Rate 52 mL/min (>60); Est Glom Filt Rate - Afr Amer 63 mL/min (>60); Estimated Creatinine Clearance 50.79 ml/min; Glucose 124 mg/dL (74-106); Sodium Level 137 mmol/L (136-145)
[2022-02-15 14:26] VITALS: BP 170/92; PULSE 64; RESP 16; O2SAT 96
== END 2022-02-15 14:30 | disposition home or self-care (01) ==
PROVIDERS: Emergency Provider Emergency Medicine; PCP Internal Medicine; Visit Provider Emergency Medicine
DX: U07.1 COVID-19 (principal); E86.0 Dehydration; R11.2 Nausea with vomiting, unspecified
CPT/HCPCS: 80048; 96365; 96372; 96375; 99283; J7030; A4216; J3490